=== PATIENT | male | born 1975 | race African-American/Black ===

== ENCOUNTER 2016-07-31 17:41 | Emergency (ER) | payer OTHER ==
[~2016-07-31] VITALS: Ht 172.7 cm; Wt 99.8 kg
[2016-07-31 18:53] VITALS: BP 144/89
[2016-07-31] MEDS ORDERED: BUPIVACAINE 0.5% 50 ML VIAL. INJ ONE (19:15)
[2016-07-31] MEDS ORDERED: DIPHTH,PERTUSS(ACELL),TET TOX 0.5 ML DISP.SYRIN. VAX IM ONE (19:15)
[2016-07-31] MEDS ORDERED: HYDROCODONE/APAP 5/325MG TABLET. PO ONE (19:15)
[2016-07-31] MEDS ORDERED: SULF1TAB24 PO (20:48)
[2016-07-31] MEDS ORDERED: HYDR-971 PO (20:48)
--- NOTE | 2016-07-31 20:48 | PHYS DOC ---
Past Medical History Past Medical History: Stroke Past Surgical History: Other Additional Past Surgical Histo: tumor removed R arm Alcohol Use: None Drug Use: None Adult General Chief Complaint Chief Complaint: ABSCESS HPI HPI Patient is a 41 year old male with history of CVA who presents today with a right thumb abscess for the last 2 days. Patient denies any fever or drainage from the area. Review of Systems Review of Systems Constitutional: Denies fever or chills [] Eyes: Denies change in visual acuity, redness, or eye pain [] Musculoskeletal: Denies back pain or joint pain [] Integument: Right thumb abscess Neurologic: Denies headache, focal weakness or sensory changes [] Endocrine: Denies polyuria or polydipsia [] Current Medications Current Medications Current Medications Medications (Trade) Dose Ordered Sig/Juanita Start Time Stop Time Status Last Admin Dose Admin Acetaminophen/ Hydrocodone Bitart (Lortab 5/325) 1 tab 1X ONCE 07/31/16 19:15 07/31/16 19:16 DC 07/31/16 19:27 1 TAB Bupivacaine HCl (Marcaine 0.5%) 50 ml 1X ONCE 07/31/16 19:15 07/31/16 19:16 DC 07/31/16 19:27 50 ML Diphtheria/ Tetanus/Acell Pertussis (Boostrix) 0.5 ml ONCE ONCE 07/31/16 19:15 07/31/16 19:16 DC 07/31/16 19:29 0.5 ML Allergies Allergies Allergies Coded Allergies Type Severity Reaction Last Updated Verified No Known Drug Allergies 07/31/16 No Physical Exam Physical Exam Constitutional: Well developed, well nourished, no acute distress, non-toxic appearance. [] HENT: Normocephalic, atraumatic, bilateral external ears normal, oropharynx moist, no oral exudates, nose normal. [] Skin: Mild erythema and soft tissue swelling noted along the nailbed of the right thumb. The area is fluctuant very warm and tender to palpate. +2 right radial pulse. Sensation intact to the right thumb. Back: No tenderness, no CVA tenderness. [] Extremities: No tenderness, no cyanosis, no clubbing, ROM intact, no edema. [] Neurologic: Alert and oriented X 3, normal motor function, normal sensory function, no focal deficits noted. [] Psychologic: Affect normal, judgement normal, mood normal. [] Current Patient Data Vital Signs Vital Signs Date Time Temp Pulse Resp B/P Pulse Ox O2 Delivery O2 Flow Rate FiO2 07/31/16 19:27 18 Room Air 07/31/16 18:53 98.7 104 97 98.7 EKG EKG [] Radiology/Procedures Radiology/Procedures Indication: Paronychia right thumb Procedure: The patient was positioned appropriately. Right thumb was digitally blocked using Bupivacaine 0.5% An incision was then made over the apex of the lesion and large amount of purulent yellow material was expressed. The drainage cavity was irrigated and covered with sterile gauze. The patients tetanus status updated as needed. The patient tolerated the procedure well. Complications: none.[] Procedure done by me Course & Med Decision Making Course & Med Decision Making Pertinent Labs and Imaging studies reviewed. (See chart for details) Patient has paronychia of the right thumb which was drained as noted in procedures. Discharged Bactrim for 10 days. Discharged with hydrocodone as needed for pain. Follow-up with PCP in one week. Provided return precautions and discharged in stable condition. Dragon Disclaimer Dragon Disclaimer This electronic medical record was generated, in whole or in part, using a voice recognition dictation system. Departure Departure Impression: Primary Impression: Paronychia of finger Disposition: 01 HOME, SELF-CARE Condition: STABLE Referrals: UNKNOWN PCP NAME (PCP) Follow-up with your own doctor in one week Patient Instructions: Paronychia, [id number] Additional Instructions: You were seen for infection of the right thumb. Keep the area clean and dry. Soak it in warm Epsom salts salt water twice a day. Complete your antibiotics. Follow-up with your own doctor in one week. Come back to the emergency room at any point symptoms worsen or you have a fever. Scripts Hydrocodone/Apap 5-325 (Mondamin 5-325 Tablet)1 Each Tablet1-2 Tab PO Q4-6HRS #22 TAB Prov:GLADIS ANN APRN 07/31/16 Sulfamethoxazole/Trimethoprim (Bactrim Ds Tablet)1 Each Tablet1 Tab PO BID #20 TAB Prov:GLADIS ANN APRN 07/31/16 Problem Qualifiers Primary Impression: Paronychia of finger Laterality: right Qualified Code: L03.011 - Cellulitis of right finger GLADIS ANN APRN Jul 31, 2016 20:48
== END 2016-07-31 20:56 | disposition home or self-care (01) ==
LOC: ER 17:41
DX: L03.011 Cellulitis of right finger (principal); Z86.73 Personal history of transient ischemic attack (TIA), and cerebral infarction without residual deficits
CPT/HCPCS: 10060; 90471; 90715; 99283; J3490